=== PATIENT | female | born 1985 ===

== ENCOUNTER 2016-05-16 09:00 | Emergency (ER) | payer BC, MEDICAID ==
[2016-05-16 09:00] VITALS: BMI 37.8
[2016-05-16 09:13] VITALS: BP 134/86; PULSE 89; RESP 20; TEMP 98; O2SAT 98
[2016-05-16] MEDS ORDERED: Sodium Chloride 0.9% 1,000 ML IV STA (09:25)
--- NOTE | 2016-05-16 09:35 | ED PDOC ---
HPI: Abdomen Time Seen by Provider: 05/16/16 09:17 Chief Complaint (Provider): right lower abdominal pain History Per: Patient History/Exam Limitations: no limitations Onset/Duration Of Symptoms: Days (3 weeks), Waxing/Waning Current Symptoms Are (Timing): Intermittent Episodes Severity: Mild Location Of Pain/Discomfort: RLQ. denies: LLQ Quality Of Discomfort: Sharp Associated Symptoms: Nausea, Urinary Symptoms. denies: Vomiting, Diarrhea, Loss Of Appetite, Chest Pain Exacerbating Factors: None Alleviating Factors: None Last Bowel Movement: Today Additional Complaint(s): 30yo female c/o RLQ pain intermittely x3 weeks. Symptoms associated with Denies N/V/D, fever or vaginal discharge. States had pelvic exam with pap smear normal several months ago. States took home preg test and negative last week. Past Medical History Reviewed: Historical Data, Nursing Documentation, Vital Signs Vital Signs: Last Vital Signs Temp 98 F 05/16/16 09:12 Pulse 89 05/16/16 09:12 Resp 20 05/16/16 09:12 BP 134/86 05/16/16 09:12 Pulse Ox 98 05/16/16 13:32 - Medical History PMH: Hyperthyroidism, Hypothyroidism, Migraine - Surgical History Surgical History: Tonsillectomy - Family History Family History: States: Unknown Family Hx - Living Arrangements Living Arrangements: With Family - Social History Current smoker - smoking cessation education provided: No - Immunization History Hx Tetanus Toxoid Vaccination: No Hx Influenza Vaccination: No Hx Pneumococcal Vaccination: No - Home Medications Home Medications: Ambulatory Orders Medication Instructions Recorded Methimazole 5 mg PO DAILY 01/24/14 Vitamin D 1,500 units PO DAILY 01/24/14 Ibuprofen [Motrin] 600 mg PO Q8 #15 tab 08/11/15 Naproxen [Naprosyn] 500 mg PO Q12H #20 tab 11/10/15 traMADol [Ultram] 50 mg PO TID PRN #12 tab 05/16/16 - Allergies Allergies/Adverse Reactions: Allergies Allergy/AdvReac Type Severity Reaction Status Date / Time shrimp Allergy ITCHING Verified 05/16/16 09:34 Review of Systems Constitutional: Negative for: Fever, Chills Cardiovascular: Negative for: Chest Pain, Palpitations Respiratory: Negative for: Cough, Shortness of Breath Gastrointestinal: Positive for: Nausea, Abdominal Pain. Negative for: Vomiting , Diarrhea Genitourinary Female: Positive for: Frequency, Vaginal Bleeding, Pelvic Pain. Negative for: Dysuria, Vaginal Discharge Musculoskeletal: Negative for: Neck Pain, Shoulder Pain Skin: Negative for: Rash, Lesions, Jaundice Neurological: Negative for: Weakness, Numbness Physical Exam - Reviewed Nursing Documentation Reviewed: Yes Vital Signs Reviewed: Yes - Physical Exam Appears: Positive for: Well, Non-toxic, No Acute Distress Head Exam: Positive for: ATRAUMATIC, NORMAL INSPECTION, NORMOCEPHALIC Skin: Positive for: Normal Color, Warm, DRY Eye Exam: Positive for: EOMI, Normal appearance, PERRL ENT: Positive for: Normal ENT Inspection Neck: Positive for: Normal, Painless ROM Cardiovascular/Chest: Positive for: Regular Rate, Rhythm Respiratory: Positive for: CNT, Normal Breath Sounds Gastrointestinal/Abdominal: Positive for: Bowel Sounds, Soft, Tenderness (mild RLQ tenderness) Back: Positive for: Normal Inspection Extremity: Positive for: Normal ROM Neurologic/Psych: Positive for: Alert, Oriented - Laboratory Results Result Diagrams: 05/16/16 09:30 05/16/16 09:30 - ECG O2 Sat by Pulse Oximetry: 98 Pulse Ox Interpretation: Normal Medical Decision Making Medical Decision Making: Workup for R abd pain in female initiated. Preg neg. Labwork reviewed, unremarkable UA +small leuk but +epith cells CT: Accession No. : [id number] Patient Name / ID : MAHENDRA SENA / [id number] Exam Date : 05/16/2016 10:42:36 ( Approved ) Study Comment : Sex / Age : F / 30Y Creator : Sandor Patricio MD Dictator : Sandor Patricio MD Traffic Warehouse Supervisor : Lead Qa Analyst : Sandor Patricio MD Approver2 : Report Date : 05/16/2016 11:17:38 My Comment : PROCEDURE: CT Abdomen and Pelvis without intravenous contrast HISTORY: RLQ pain x3 wks COMPARISON: None. TECHNIQUE: Without contrast. Contrast Dose: Radiation dose: Total exam DLP = 939 mGy-cm. FINDINGS: LOWER THORAX: Unremarkable. LIVER: Unremarkable. No gross lesion or ductal dilatation. GALLBLADDER AND BILE DUCTS: Unremarkable. PANCREAS: Unremarkable. No gross lesion or ductal dilatation. SPLEEN: Unremarkable. ADRENALS: Unremarkable. No mass. KIDNEYS AND URETERS: Unremarkable. No hydronephrosis. No solid mass. VASCULATURE: Unremarkable. No aortic aneurysm. BOWEL: Unremarkable. No obstruction. No gross mural thickening. APPENDIX: Unremarkable. Normal appendix. PERITONEUM: There is a small amount of free fluid on the right side of the pelvis most likely due to recent cyst rupture LYMPH NODES: Unremarkable. No enlarged lymph nodes. BLADDER: Unremarkable. REPRODUCTIVE: Unremarkable. BONES: No acute fracture. OTHER FINDINGS: None. IMPRESSION: Small amount of free fluid in the right-sided pelvis most likely due to recent cyst rupture. No evidence of appendicitis results reviewed w patient. Has a SUSTAINABILITY PURCHASING AGENT she will see next week. Rx analgesics. Disposition - Clinical Impression Clinical Impression: Pelvic pain - Patient ED Disposition Is Patient to be Admitted: No Counseled Patient/Family Regarding: Studies Performed, Diagnosis, Need For Followup, Rx Given - Disposition Referrals: [facility] [Outside] Dima Wagoner MD [Staff Provider] - Disposition: Routine/Home Disposition Time: 12:15 Condition: STABLE Additional Instructions: See SUSTAINABILITY PURCHASING AGENT doctor for further testing. Return to ER for any concern. Prescriptions: traMADol [Ultram] 50 mg PO TID PRN #12 tab PRN Reason: Pain, Moderate (4-7) Instructions: Pelvic Pain in Men (ED), Abdominal Pain (ED)
[2016-05-16 10:14] LABS: RBC URINE 3 /hpf (0-3); URINE BILIRUBIN NEGATIVE (NEGATIVE); URINE BLOOD NEGATIVE (NEGATIVE); URINE COLOR YELLOW (YELLOW); URINE GLUCOSE (UA) NEG (Normal); URINE KETONE NEGATIVE (NEGATIVE); URINE LEUKOCYTE ESTERASE SMALL Leu/uL (Negative); URINE PROTEIN NEGATIVE (NEGATIVE); URINE UROBILINOGEN 0.2-1.0 mg/dL (0.2-1.0); WBC URINE 1 /hpf (0-5)
[2016-05-16 10:20] LABS: ALB/GLOB RATIO 1.4 (1.0-2.1); ALKALINE PHOSPHATASE 82 U/L (38-126); ALT/SGPT 19 U/L (9-52); AST/SGOT 22 U/L (14-36); BILIRUBIN,TOTAL 0.8 mg/dl (0.2-1.3); BLOOD UREA NITROGEN 12 mg/dl (7-17); CALCIUM 9.3 mg/dL (8.4-10.2); CARBON DIOXIDE 24 mmol/L (22-30); CHLORIDE 108 mmol/L (98-107); GFR AFRICAN-AMERICAN > 60; GLUCOSE,RANDOM 96 mg/dL (65-105); LIPASE 44 U/L (23-300); POTASSIUM 4.1 MMOL/L (3.6-5.0); SODIUM 143 mmol/l (132-148); TOTAL PROTEIN 7.8 G/DL (6.3-8.2)
[2016-05-16 10:23] LABS: BASO % 0.5 % (0.0-2.0); EOS # 0.2 K/uL (0.0-0.7); EOS % 3.5 % (0.0-4.0); HEMATOCRIT 38.8 % (34.0-47.0); LYMPH # 2.5 K/uL (1.0-4.3); LYMPH % 35.1 % (20.0-40.0); MEAN CELL VOLUME 79.3 fl (81.0-99.0); MEAN CORPUSCULAR HEMOGLOBIN 26.1 pg (27.0-31.0); MEAN CORPUSCULAR HGB CONC 32.9 g/dL (33.0-37.0); MEAN PLATELET VOLUME 7.6 fl (7.2-11.7); MONO # 0.5 K/uL (0.0-0.8); MONO % 6.7 % (0.0-10.0); NEUT # 3.9 K/uL (1.8-7.0); NEUT % 54.2 % (50.0-75.0); RED CELL DISTRIBUTION WIDTH 14.3 % (11.5-14.5); WHITE BLOOD COUNT 7.1 K/uL (4.8-10.8)
--- NOTE | 2016-05-16 11:19 | CT ---
PROCEDURE: CT Abdomen and Pelvis without intravenous contrast HISTORY: RLQ pain x3 wks COMPARISON: None. TECHNIQUE: Without contrast. Contrast Dose: Radiation dose: Total exam DLP = 939 mGy-cm. FINDINGS: LOWER THORAX: Unremarkable. LIVER: Unremarkable. No gross lesion or ductal dilatation. GALLBLADDER AND BILE DUCTS: Unremarkable. PANCREAS: Unremarkable. No gross lesion or ductal dilatation. SPLEEN: Unremarkable. ADRENALS: Unremarkable. No mass. KIDNEYS AND URETERS: Unremarkable. No hydronephrosis. No solid mass. VASCULATURE: Unremarkable. No aortic aneurysm. BOWEL: Unremarkable. No obstruction. No gross mural thickening. APPENDIX: Unremarkable. Normal appendix. PERITONEUM: There is a small amount of free fluid on the right side of the pelvis most likely due to recent cyst rupture LYMPH NODES: Unremarkable. No enlarged lymph nodes. BLADDER: Unremarkable. REPRODUCTIVE: Unremarkable. BONES: No acute fracture. OTHER FINDINGS: None. IMPRESSION: Small amount of free fluid in the right-sided pelvis most likely due to recent cyst rupture. No evidence of appendicitis
== END 2016-05-16 13:54 | disposition home or self-care (01) ==
LOC: H.ER 09:00
DX: N83.209 Unspecified ovarian cyst, unspecified side (principal)
CPT/HCPCS: 74176; 80053; 81003; 81025; 83690; 85025; 96374; 99284; J1885; J7040

== ENCOUNTER 2016-09-26 15:35 | Emergency (ER) | payer BC, MEDICAID ==
[2016-09-26 15:35] VITALS: BMI 37.8
[2016-09-26 15:42] VITALS: BP 142/76; PULSE 79; RESP 18; TEMP 98.5; O2SAT 100
--- NOTE | 2016-09-26 16:31 | ED PDOC ---
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 No numbness/tingling. Past Medical History Reviewed: Historical Data, Nursing Documentation, Vital Signs Vital Signs: Last Vital Signs Temp 98.5 F 09/26/16 15:39 Pulse 79 09/26/16 15:39 Resp 18 09/26/16 15:39 BP 142/76 09/26/16 15:39 Pulse Ox 100 09/26/16 15:39 - Medical History PMH: Hyperthyroidism, Hypothyroidism, Migraine - Surgical History Surgical History: Tonsillectomy - Family History Family History: States: Unknown Family Hx - Living Arrangements Living Arrangements: With Family - Social History Current smoker - smoking cessation education provided: No Alcohol: None Drugs: Denies - Immunization History Hx Tetanus Toxoid Vaccination: No Hx Influenza Vaccination: No Hx Pneumococcal Vaccination: No - Home Medications Home Medications: Ambulatory Orders Medication Instructions Recorded Methimazole 5 mg PO DAILY 01/24/14 Vitamin D 1,500 units PO DAILY 01/24/14 Ibuprofen [Motrin] 600 mg PO Q8 #15 tab 08/11/15 Naproxen [Naprosyn] 500 mg PO Q12H #20 tab 11/10/15 traMADol [Ultram] 50 mg PO TID PRN #12 tab 05/16/16 - Allergies Allergies/Adverse Reactions: Allergies Allergy/AdvReac Type Severity Reaction Status Date / Time shrimp Allergy ITCHING Verified 09/26/16 15:39 Review of Systems ROS Statement: Except As Marked, All Systems Reviewed And Found Negative Musculoskeletal: Positive for: Foot Pain Physical Exam - Reviewed Nursing Documentation Reviewed: Yes Vital Signs Reviewed: Yes - Physical Exam Appears: Positive for: Well, Non-toxic, No Acute Distress Head Exam: Positive for: ATRAUMATIC, NORMAL INSPECTION, NORMOCEPHALIC Skin: Positive for: Normal Color, Warm, DRY Eye Exam: Positive for: Normal appearance ENT: Positive for: Normal ENT Inspection Neck: Positive for: Normal, Painless ROM Respiratory: Negative for: Accessory Muscle Use, Respiratory Distress Pulses-Dorsalis Pedis (L): 2+ Pulses-Dorsalis Pedis (R): 2+ Pulses-Post. Tibialis (L): 2+ Pulses-Post. Tibialis (R): 2+ Back: Positive for: Normal Inspection Extremity: Positive for: Normal ROM (Ankle and foot ), Tenderness ([place] ) Neurologic/Psych: Positive for: Alert, Oriented - ECG O2 Sat by Pulse Oximetry: 100 Pulse Ox Interpretation: Normal Medical Decision Making Medical Decision Making: X-ray without acute fracture or dislocation Yuan wrap and crutches. Disposition - Clinical Impression Clinical Impression: Injury of foot - Patient ED Disposition Is Patient to be Admitted: No Counseled Patient/Family Regarding: Diagnosis, Need For Followup - Disposition Referrals: [facility] [Outside] Disposition: Routine/Home Disposition Time: 17:15 Condition: GOOD Additional Instructions: Ice, elevation, motrin. Instructions: Foot Sprain (ED)
--- NOTE | 2016-09-26 18:51 | RAD ---
PROCEDURE: Left Foot Radiographs. HISTORY: left foot pain, twisted COMPARISON: None. FINDINGS: BONES: Normal. No fracture. JOINTS: Normal. SOFT TISSUES: Normal. OTHER FINDINGS: None. IMPRESSION: Normal left foot radiographs.
== END 2016-09-26 17:25 | disposition home or self-care (01) ==
LOC: H.ER 15:35
DX: S93.602A Unspecified sprain of left foot, initial encounter (principal); X50.9XXA Other and unspecified overexertion or strenuous movements or postures, initial encounter; Y92.89 Other specified places as the place of occurrence of the external cause

== ENCOUNTER 2017-10-28 21:28 | Emergency (ER) | payer MEDICAID, OTHER ==
[2017-10-28 21:29] VITALS: BMI 37.8
[2017-10-28 21:47] VITALS: BP 128/84; PULSE 84; RESP 16; TEMP 98.5; O2SAT 99
--- NOTE | 2017-10-28 22:12 | ED PDOC ---
HPI: Female Pain Time Seen by Provider: 10/28/17 22:10 Chief Complaint (Nursing): Female Genitourinary Chief Complaint (Provider): dysuria History Per: Patient Additional Complaint(s): 32 year old female presents with dysuria, hematuria and urinary urgency 2 days. She denies fever, chills, abdominal pain or back pain. Patient states last week she had full STD panel testing with her DIAMOND SANDER and all tests were negative. At this time she denies any concern for possible STD. PMD: [place] Past Medical History Reviewed: Historical Data, Nursing Documentation, Vital Signs Vital Signs: Last Vital Signs Temp 98.5 F 10/28/17 21:44 Pulse 84 10/28/17 21:44 Resp 16 10/28/17 21:44 BP 128/84 10/28/17 21:44 Pulse Ox 99 10/28/17 21:44 - Medical History PMH: Hyperthyroidism, Migraine - Surgical History Surgical History: Tonsillectomy, (x 1) - Family History Family History: States: No Known Family Hx - Living Arrangements Living Arrangements: With Family - Social History Current smoker - smoking cessation education provided: No Alcohol: None Drugs: Denies - Home Medications Home Medications: Ambulatory Orders Medication Instructions Recorded Methimazole 5 mg PO DAILY 01/24/14 Vitamin D 1,500 units PO DAILY 01/24/14 Ibuprofen [Motrin] 600 mg PO Q8 #15 tab 08/11/15 Naproxen [Naprosyn] 500 mg PO Q12H #20 tab 11/10/15 traMADol [Ultram] 50 mg PO TID PRN #12 tab 05/16/16 Nitrofurantoin Macrocrystals 100 mg PO BID #14 cap 10/28/17 [Macrobid] Phenazopyridine HCl [Pyridium] 200 mg PO TID PRN #6 tablet 10/28/17 - Allergies Allergies/Adverse Reactions: Allergies Allergy/AdvReac Type Severity Reaction Status Date / Time shrimp Allergy ITCHING Verified 10/28/17 21:43 Review of Systems ROS Statement: Except As Marked, All Systems Reviewed And Found Negative Constitutional: Negative for: Fever Gastrointestinal: Negative for: Nausea, Vomiting, Abdominal Pain Genitourinary Female: Positive for: Dysuria, Frequency, Hematuria. Negative for : Incontinence, Vaginal Discharge, Vaginal Bleeding Musculoskeletal: Negative for: Back Pain Physical Exam - Reviewed Nursing Documentation Reviewed: Yes Vital Signs Reviewed: Yes - Physical Exam Appears: Positive for: Well, Non-toxic, No Acute Distress Skin: Positive for: Normal Color. Negative for: Rash Eye Exam: Positive for: Normal appearance Cardiovascular/Chest: Positive for: Regular Rate, Rhythm Respiratory: Positive for: Normal Breath Sounds. Negative for: Respiratory Distress Gastrointestinal/Abdominal: Positive for: Soft. Negative for: Tenderness, Distended, Guarding, Rebound Back: Negative for: L CVA Tenderness, R CVA Tenderness Extremity: Positive for: Normal ROM Neurologic/Psych: Positive for: Alert, Oriented - Laboratory Results Urine POC: Negative Urine dip results: Positive for: Leukocyte Esterase (moderate), Blood, Nitrate ( positive). Negative for: Ketones, Glucose, Bilirubin, Protein - ECG O2 Sat by Pulse Oximetry: 99 Pulse Ox Interpretation: Normal Medical Decision Making Medical Decision Makin32 year old with dysuria Plan: Urine dip Urine preg Urine culture Urine dip shows leukocytes, blood and nitrites. Patient given initial dose of Macrobid along with Pyridium 200 mg tablet. Prescriptions provided for Macrobid and Pyridium. Advised fluids, rest and PMD follow-up in 2-3 days. Disposition - Clinical Impression Clinical Impression: Urinary tract infection - Patient ED Disposition Is Patient to be Admitted: No Counseled Patient/Family Regarding: Studies Performed, Diagnosis, Need For Followup, Rx Given - Disposition [facility] Disposition: Routine/Home Disposition Time: 23:26 Condition: STABLE Additional Instructions: Take rx meds as directed. Drink plenty of water. Follow up with primary care doctor in 2-3 days. Prescriptions: Nitrofurantoin Macrocrystals [Macrobid] 100 mg PO BID #14 cap Phenazopyridine HCl [Pyridium] 200 mg PO TID PRN #6 tablet PRN Reason: Bladder Spasm Instructions: Urinary Tract Infection, Adult (DC) Forms: Dispatch (Persian)
== END 2017-10-28 23:31 | disposition home or self-care (01) ==
LOC: H.ER 21:28
DX: N39.0 Urinary tract infection, site not specified (principal); E05.90 Thyrotoxicosis, unspecified without thyrotoxic crisis or storm

== ENCOUNTER 2018-03-13 15:23 | Emergency (ER) | payer MEDICAID ==
[2018-03-13 15:23] VITALS: BMI 37.8
--- NOTE | 2018-03-13 16:20 | ED PDOC ---
HPI: Head Injury Time Seen by Provider: 03/13/18 15:32 Chief Complaint (Nursing): Trauma Chief Complaint (Provider): Head Injury History Per: Patient History/Exam Limitations: no limitations Injury Occurred (Timing): Just Before Arrival Onset/Duration Of Symptoms: Hrs Patient States: Fell Striking Head Loss Of Consciousness: Second(s) Additional Complaint(s): 32 year old female presents to the ED for an evaluation of head injury. Patient reports she fell back on concrete while walking her dog. She lost consciousness and does not recall how long she was unconscious for. Patient woke up feeling light headedness and walked home. Also reports of headache, photophobia, neck pain and states she feels out of it. Denies any motor or sensory weakness. PMD: Lisa ([place], [place]) Past Medical History Reviewed: Historical Data, Nursing Documentation, Vital Signs Vital Signs: Last Vital Signs Temp 97.8 F 03/13/18 15:27 Pulse 63 03/13/18 15:27 Resp 18 03/13/18 15:27 BP 131/79 03/13/18 15:27 Pulse Ox 100 03/13/18 15:27 - Medical History PMH: Hyperthyroidism, Hypothyroidism, Migraine - Surgical History Surgical History: Tonsillectomy, (x 1) - Family History Family History: States: Unknown Family Hx - Social History Current smoker - smoking cessation education provided: Yes Alcohol: Social Drugs: Denies - Immunization History Hx Tetanus Toxoid Vaccination: No Hx Influenza Vaccination: No Hx Pneumococcal Vaccination: No - Home Medications Home Medications: Ambulatory Orders Medication Instructions Recorded Methimazole 5 mg PO DAILY 01/24/14 Vitamin D 1,500 units PO DAILY 01/24/14 Ibuprofen [Motrin] 600 mg PO Q8 #15 tab 08/11/15 Naproxen [Naprosyn] 500 mg PO Q12H #20 tab 11/10/15 RX: traMADol [Ultram] 50 mg PO TID PRN #12 tab 05/16/16 Nitrofurantoin Macrocrystals 100 mg PO BID #14 cap 10/28/17 [Macrobid] Phenazopyridine HCl [Pyridium] 200 mg PO TID PRN #6 tablet 10/28/17 - Allergies Allergies/Adverse Reactions: Allergies Allergy/AdvReac Type Severity Reaction Status Date / Time shrimp Allergy ITCHING Verified 03/13/18 15:27 Review of Systems ROS Statement: Except As Marked, All Systems Reviewed And Found Negative (As per HPI, otherwise negative) Musculoskeletal: Positive for: Neck Pain Neurological: Positive for: Headache, Other (head injury, LOC). Negative for: Weakness, Numbness Psych: Negative for: Suicidal ideation (homicidal ideation) Physical Exam - Reviewed Nursing Documentation Reviewed: Yes Vital Signs Reviewed: Yes - Physical Exam Appears: Positive for: In Acute Distress (mild) Head Exam: Positive for: ATRAUMATIC, NORMOCEPHALIC. Negative for: NORMAL INSPECTION (Tenderness to palpation to right occipital with subtle hematoma) Skin: Positive for: Warm, Dry Eye Exam: Positive for: EOMI, Normal appearance, PERRL Neck: Positive for: Supple, Decreased ROM (tenderness to palpation midline right on cervical spine), Trachea Midline Respiratory: Positive for: Normal Breath Sounds. Negative for: Respiratory Distress Extremity: Positive for: Normal ROM. Negative for: Deformity Lymphatic: Negative for: Adenopathy Neurologic/Psych: Positive for: Alert, Oriented (x3), Cerebellar Tests (normal head to toe). Negative for: Motor/Sensory Deficits - ECG O2 Sat by Pulse Oximetry: 100 (RA) Pulse Ox Interpretation: Normal Medical Decision Making Medical Decision Making: Time: 1545 Initial Impression: head injury and neck pain Differential Diagnosis: traumatic brain injury, cervical spinal injury, unconsciousness Initial Plan: Cervical spine w/o contrast [CT] Head w/o Contrast [CT] ED Urine Acetaminophen 975mg Ice [apply ice to affected area] Reevaluation Time: 1654 CT head w/o contrast read and reviewed by radiologist FINDINGS: HEMORRHAGE: No intracranial hemorrhage. BRAIN: Normal wong-white matter differentiation and density are appreciated throughout the cerebrum and cerebellum with the brainstem appearing unremarkable as well. There is no mass effect. There is no suspicious extra-axial fluid collection and the midline brain anatomy appears diffusely unremarkable. Incidental cavum septum pellucidum vergae suggested. VENTRICLES: Unremarkable. No hydrocephalus. CALVARIUM: No destructive bony lesion or displaced fracture identified including through the skullbase. PARANASAL SINUSES: Unremarkable as visualized. No significant inflammatory changes. MASTOID AIR CELLS: Unremarkable as visualized. No inflammatory changes. OTHER FINDINGS: None. IMPRESSION: No acute intracranial findings. Calvarium intact grossly, as imaged as well as skullbase. Time: 1658 CT cervical spine w/o contrast read and reviewed by radiologist FINDINGS: VERTEBRAE: No fracture identified. No spondylolisthesis appreciable. C1-2 articulation appears normal as well as the craniocervical junction. The cervical curvature is mildly straightened. No destructive bony lesion appreciable. DISCS/SPINAL CANAL/NEURAL FORAMINA: No significant central canal or neural foraminal stenosis. Discs heights are grossly preserved. PARASPINAL SOFT TISSUES: Unremarkable. OTHER FINDINGS: None. IMPRESSION: No fracture or spondylolisthesis. Mildly straightened curvature. No gross disc herniation or spinal stenosis appreciable. ----- Scribe Attestation: Documented by Kacy Martínez, acting as a scribe for Maria Eugenia Fitzpatrick MD. Provider Scribe Attestation: All medical record entries made by the Scribe were at my direction and personally dictated by me. I have reviewed the chart and agree that the record accurately reflects my personal performance of the history, physical exam, medical decision making, and the department course for this patient. I have also personally directed, reviewed, and agree with the discharge instructions and disposition. ----- Scribe Attestation: Documented by Catalina Callejas, acting as a scribe for Maria Eugenia Fitzpatrick MD. Provider Scribe Attestation: All medical record entries made by the Scribe were at my direction and personally dictated by me. I have reviewed the chart and agree that the record accurately reflects my personal performance of the history, physical exam, medical decision making, and the department course for this patient. I have also personally directed, reviewed, and agree with the discharge instructions and disposition. Disposition - Clinical Impression Clinical Impression: Head injury, Concussion Counseled Patient/Family Regarding: Studies Performed, Diagnosis, Need For Followup - Disposition Referrals: [facility] [Provider Group] (FOLLOW UP WITH [facility] IN A WEEK FOR REEVALUATION) Disposition: Routine/Home Disposition Time: 17:00 Condition: STABLE Instructions: Concussion, Adult (DC), Minor Head Injury (DC)
--- NOTE | 2018-03-13 16:59 | CT ---
Date of service: 03/13/2018 PROCEDURE: CT HEAD WITHOUT CONTRAST. HISTORY: head injury LOC COMPARISON: None available. TECHNIQUE: Axial computed tomography images were obtained through the head/brain without intravenous contrast. Radiation dose: Total exam DLP = 894.8 mGy-cm. This CT exam was performed using one or more of the following dose reduction techniques: Automated exposure control, adjustment of the mA and/or kV according to patient size, and/or use of iterative reconstruction technique. FINDINGS: HEMORRHAGE: No intracranial hemorrhage. BRAIN: Normal wong-white matter differentiation and density are appreciated throughout the cerebrum and cerebellum with the brainstem appearing unremarkable as well. There is no mass effect. There is no suspicious extra-axial fluid collection and the midline brain anatomy appears diffusely unremarkable. Incidental cavum septum pellucidum vergae suggested. VENTRICLES: Unremarkable. No hydrocephalus. CALVARIUM: No destructive bony lesion or displaced fracture identified including through the skullbase. PARANASAL SINUSES: Unremarkable as visualized. No significant inflammatory changes. MASTOID AIR CELLS: Unremarkable as visualized. No inflammatory changes. OTHER FINDINGS: None. IMPRESSION: No acute intracranial findings. Calvarium intact grossly, as imaged as well as skullbase.
--- NOTE | 2018-03-13 17:03 | CT ---
Date of service: 03/13/2018 PROCEDURE: CT Cervical Spine without contrast HISTORY: neck pain s/p head injury COMPARISON: None available. TECHNIQUE: Axial computed tomography images were obtained of the cervical spine without the use of intravenous contrast. Coronal and sagittal reformatted images were created and reviewed. Radiation dose: Total exam DLP = 328.85 mGy-cm. This CT exam was performed using one or more of the following dose reduction techniques: Automated exposure control, adjustment of the mA and/or kV according to patient size, and/or use of iterative reconstruction technique. FINDINGS: VERTEBRAE: No fracture identified. No spondylolisthesis appreciable. C1-2 articulation appears normal as well as the craniocervical junction. The cervical curvature is mildly straightened. No destructive bony lesion appreciable. DISCS/SPINAL CANAL/NEURAL FORAMINA: No significant central canal or neural foraminal stenosis. Discs heights are grossly preserved. PARASPINAL SOFT TISSUES: Unremarkable. OTHER FINDINGS: None. IMPRESSION: No fracture or spondylolisthesis. Mildly straightened curvature. No gross disc herniation or spinal stenosis appreciable.
[2018-03-13 17:29] VITALS: BP 139/82; PULSE 62; RESP 17; TEMP 98.7
[2018-03-13 17:32] VITALS: O2SAT 100
== END 2018-03-13 17:29 | disposition home or self-care (01) ==
LOC: H.ER 15:23
DX: S06.0X0A Concussion without loss of consciousness, initial encounter (principal); W19.XXXA Unspecified fall, initial encounter; Y93.K1 Activity, walking an animal; Y92.480 Sidewalk as the place of occurrence of the external cause; E03.9 Hypothyroidism, unspecified; E05.90 Thyrotoxicosis, unspecified without thyrotoxic crisis or storm